=== PATIENT | male | born 1995 | race African-American/Black ===

== ENCOUNTER 2017-04-11 19:40 | Emergency (ER) | payer MEDICAID ==
[~2017-04-11] VITALS: Ht 180.3 cm; Wt 74.8 kg
[2017-04-11 19:59] VITALS: BP 115/69
[2017-04-11 21:12] LABS: Basophils # (auto) 0.1 uL; Basophils % (auto) 0.4 % (0.0-2.0); Eosinophils # (auto) 0.1 uL; Eosinophils % (auto) 0.5 % (0.0-7.0); Hemoglobin 15.4 g/dL (13.5-17.5); Lymphocytes # (auto) 2.3 uL; Lymphocytes % (auto) 13.8 % (10.0-50.0); Mean Corpuscular Hemoglobin 29.9 pg (28.0-32.0); Mean Corpuscular Hgb Conc. 33.5 g/dL (32.0-36.0); Mean Corpuscular Volume 89.4 fL (80.0-100.0); Mean Platelet Volume 8.4 fL (6.9-10.8); Monocytes # (auto) 1.2 uL; Monocytes % (auto) 7.3 % (0.0-12.0); Neutrophils # (auto) 12.8 uL; Platelet Count (auto) 244 10^3/uL (140-450); Red Cell Distribution Width 12.8 % (11.8-14.3); White Blood Cell 16.4 10^3/uL (4.4-10.8)
[2017-04-11 21:14] LABS: Potassium 3.6 mmol/L (3.5-5.1)
[2017-04-11 21:18] LABS: Acetaminophen < 2.0 ug/mL (10-30); BUN/Creatinine Ratio 9.9; Calcium 8.3 mg/dL (8.5-10.1); Salicylate < 1.7 mg/dL (2.8-20.0)
[2017-04-11 21:19] LABS: Bilirubin, Total 0.8 mg/dL (0.2-1.0)
[2017-04-11 22:47] LABS: Urine Bilirubin Negative (Negative); Urine Blood Negative /uL (Negative); Urine Color Yellow (Yellow); Urine Glucose Normal (Normal); Urine Ketone Negative (Negative); Urine Mucus FEW (None Seen); Urine Nitrite Negative (Negative); Urine RBC 1 /hpf (0 - 3); Urine Urobilinogen Normal (Negative); Urine pH 6.5 (5.0-8.0)
== END 2017-04-12 01:11 | disposition home or self-care (01) ==
LOC: EDBD 19:40 → ER 19:50
DX: N39.0 Urinary tract infection, site not specified (principal); D72.829 Elevated white blood cell count, unspecified
CPT/HCPCS: 36415; 80053; 80320; 80329; 81001; 85025